=== PATIENT | female | born 1990 | race African-American/Black ===

== ENCOUNTER 2018-10-06 14:52 | Emergency (ER) | payer MEDICAID ==
[~2018-10-06] VITALS: Ht 160 cm; Wt 100.0 kg
[2018-10-06 18:00] VITALS: BP 130/59
== END 2018-10-06 18:28 | disposition home or self-care (01) ==
LOC: ER 14:52
DX: H66.91 Otitis media, unspecified, right ear (principal); J45.909 Unspecified asthma, uncomplicated; J02.9 Acute pharyngitis, unspecified; M79.10 Myalgia, unspecified site
CPT/HCPCS: 99283